=== PATIENT | female | born 1970 | race Caucasian/White ===

== ENCOUNTER 2021-04-25 10:05 | Outpatient (REF) | payer OTHER, SELFPAY ==
[2021-04-25 10:38] LABS: MANUAL DIFF FLAG NO
[2021-04-25 10:49] LABS: Basophils Percent Auto 0.7 % (0-2); Eosinophils Absolute Auto 0.2 X10*3/uL (0.0-0.4); Eosinophils Percent Auto 2.9 % (0-4); Hematocrit 41.8 % (37.0-47.0); Hemoglobin 13.3 g/dl (12.0-16.0); Imm Gran Abs Auto 0.03 X10*3/uL (0.00-0.03); Imm Gran Pct Auto 0.5 % (0.0-0.4); Lymphocytes Absolute Auto 2.3 X10*3/uL (1.2-4.9); Lymphocytes Percent Auto 39.1 % (20-40); Mean Corpuscular HGB Conc 31.8 g/dl (31.0-35.0); Mean Corpuscular Hemoglobin 28.7 pg (27.0-33.0); Mean Corpuscular Volume 90.3 fL (80.0-98.0); Mean Platelet Volume 12.1 fL (9.4-12.3); Monocytes Absolute Auto 0.5 X10*3/uL (0.1-1.2); Monocytes Percent Auto 8.3 % (2-11); Neutrophils Absolute Auto 2.8 x10*3/uL (2.0-8.3); Neutrophils Percent Auto 48.5 % (45-73); Platelet Count 195 X10*3/uL (160-400); Red Blood Count 4.63 X10*6/uL (4.20-5.50); Red Cell Distribution Width 13.9 % (11.0-16.0); White Blood Count 5.8 X10*3/uL (4.8-10.8)
[2021-04-25 11:21] LABS: Alanine Aminotransferase 14 U/L (0-31); Albumin Level 4.1 g/dL (3.5-5.0); Alkaline Phosphatase 70 U/L (39-117); Anion Gap 14 (12-20); Aspartate Amino Transferase 18 U/L (5-31); Bilirubin Total 0.7 mg/dL (0.0-1.0); Blood Urea Nitrogen 18 mg/dL (9-16); C Reactive Protein 0.15 mg/dL (< or = 0.50); Calcium 9.9 mg/dL (8.4-10.2); Carbon Dioxide 25 mmol/L (22-29); Chloride 107 mmol/L (96-108); Estimated Glomerular Filt Rate > 60; Glucose Random 118 mg/dL (60-115); Iron 148 mcg/dL (30-160); Percent Iron Saturation 40 % (15-50); Potassium 4.5 mmol/L (3.3-5.1); Sodium 141 mmol/L (135-145); Total Iron Binding Capacity 369 mcg/dL (228-428); Total Protein 6.8 g/dL (6.5-8.0); Unsaturated Iron Binding 221 ug/dL
[2021-04-25 11:31] LABS: Erythrocyte Sedimentation Rate 4 MM/HR (0-20)
[2021-04-25 11:43] LABS: Thyroid Stimulating Hormone 1.17 uIU/mL (0.32-4.0)
[2021-04-25 11:44] LABS: Cholesterol 194 mg/dL; HDL Cholesterol 81 mg/dL; LDL Cholesterol Calculated 102 mg/dl; Lactate Dehydrogenase 140 U/L (122-220); Triglycerides 55 mg/dL
[2021-04-25 12:56] LABS: Ferritin 16 ng/mL (10-250)
[2021-04-27 08:05] LABS: ~HepC Num1 0.17 S/CO (0.00-0.79); ~Hepatitis C Antibody Nonreactive (Nonreactive)
[2021-04-27 08:11] LABS: HIV AB/AG Nonreactive (Nonreactive); HIV Num 1 0.05 S/CO (0.00-0.99)
== END 2021-04-25 10:06 | disposition home or self-care (01) ==
LOC: HO.LAB 10:05
PROVIDERS: Absent Provider Internal Medicine; PCP Internal Medicine; Visit Provider Internal Medicine Gastroenterology
DX: Z00.00 Encounter for general adult medical examination without abnormal findings (principal); Z11.4 Encounter for screening for human immunodeficiency virus [HIV]; K52.9 Noninfective gastroenteritis and colitis, unspecified; K75.81 Nonalcoholic steatohepatitis (NASH); R61 Generalized hyperhidrosis
CPT/HCPCS: 36415; 80053; 80061; 82728; 83540; 83615; 84443; 85025; 85652; 86140; 86803; 87389

== ENCOUNTER → 2021-04-28 14:58 | Outpatient (BNVA) | payer OTHER, SELFPAY | PROVIDERS: PCP Internal Medicine; Visit Provider Nurse Practitioner Family | DX: K52.9 Noninfective gastroenteritis and colitis, unspecified (principal) | CPT/HCPCS: 99212 ==

== ENCOUNTER → 2021-06-10 14:57 | Outpatient (BNVA) | payer OTHER, SELFPAY | PROVIDERS: PCP Internal Medicine; Visit Provider Nurse Practitioner Family | DX: Z13.89 Encounter for screening for other disorder (principal) ==

== ENCOUNTER 2021-12-15 10:03 | Outpatient (REF) | payer OTHER, SELFPAY ==
[2021-12-15 12:41] LABS: C Reactive Protein 0.16 mg/dL (< or = 0.50)
== END 2021-12-15 10:04 | disposition home or self-care (01) ==
LOC: HO.HMGCLDS 10:03
PROVIDERS: PCP Internal Medicine; Visit Provider Nurse Practitioner Family
DX: K52.9 Noninfective gastroenteritis and colitis, unspecified (principal)
CPT/HCPCS: 36415; 86140

== ENCOUNTER 2022-10-12 13:01 | Outpatient (AMB) | payer OTHER, SELFPAY ==
--- NOTE | 2022-10-12 13:09 | A.OFFVIS_ITS ---
Intake Vital Signs 10/12/22 13:10 Height 5 ft 6 in Weight 149 lb 14.629 oz BMI 24.2 BP 110/56 L Blood Pressure Location Lt brachial Position Sitting Pulse 71 Intake Visit Reasons: 1 year follow up Intake Note: Patient presents to in office one year follow up. Patient denies having any GI symptoms or concerns today. Allergies Seasonal Allergies Allergy (Mild, Verified 10/12/22 13:11) Unknown HPI 1 year follow up HPI Details LAST VISIT Colitis Patient is asymptomatic. We will taper slowly her mesalamine. Most likely patient had diverticulitis versus colitis. Her symptoms most likely improved due to her dietary changes. Diverticulosis Diverticulosis of right and left colon. High-fiber diet. Important about moving her bowels every day and feeling like she empties them completely. I will see patient in 1 year, sooner on as needed basis. Patient is agreeable to this plan and verbalizes understanding of instructions. She was given the opportunity to ask questions all questions answered. ? Thank you for allowing me to participate in her care Plan Medications Changed From mesalamine 1,000 mg VA BEDTIME 30 supp 2RF To mesalamine 1,000 mg VA BEDTIME 30 supp 1RF TODAY'S VISIT: Patient is here today for follow-up. Patient reports that she has been feeling well, denies any GI concerning symptoms. Denies any abdominal pain or discomfort. Occasional constipation, however patient feels like she is in perimenopause all state and feels like her symptoms are related to change in her hormone moves. Patient denies melena, hematochezia, unintentional weight loss or ribbon like stools. Patient denies dyspepsia, dysphagia or odynophagia. PFSH Medical History Hx of malignant melanoma Surgical History History of esophagogastroduodenoscopy (EGD) Hx of colonoscopy Hx of tonsillectomy Family History Mother Diabetes HTN (hypertension) Heart problem Father Diabetes HTN (hypertension) Prostate cancer Paternal Grandmother Diabetes Paternal Grandfather Prostate cancer Sister Multiple sclerosis Sister Asthma Social History Household Members: Spouse and Children Alcohol intake: current Alcohol intake frequency: a few times a week Alcohol type: wine Patient Tobacco Use Status: Never used Tobacco Substance Use Type: Marijuana Review of Systems Const Denies weight gain and Denies weight loss ENT Reports no additional complaints, Denies dysphagia and Denies odynophagia Card Reports no additional complaints Resp Reports no additional complaints GI Denies abdominal pain, Denies belching, Denies melena, Denies bloating, Denies change in bowel habits, Denies dysphagia, Denies excessive flatus, Denies dyspepsia, Denies heartburn, Denies diarrhea, Denies loose stools, Denies nausea, Denies odynophagia and Denies vomiting Musc Reports no additional complaints Neuro Reports no additional complaints Psych Reports no additional complaints Endo Reports no additional complaints Physical Exam Vital Signs: Last Vital Signs Pulse 71 10/12/22 13:10 BP 110/56 L 10/12/22 13:10 BMI result Body Mass Index 24.2 Const General: healthy appearing, no acute distress and well developed Nutritional Appearance: well nourished Orientation/consciousness: patient oriented x3 HEENT Head: Yes normal to inspection, Yes normocephalic and Yes atraumatic Face and sinus: Yes normal facial exam Mouth: Normal oral and palatal mucosa present Throat: Yes posterior oropharynx normal, Yes tonsils normal and Yes uvula midline Eyes General: appearance normal, both eyes and all related structures Neck Neck: Yes normal visual inspection, Yes full ROM and Yes trachea midline Thyroid: Thyroid normal Resp Effort & Inspection: normal respiratory effort, able to speak in complete sentences, no tracheal deviation and symmetric chest movement Auscultation: clear to auscultation bilaterally Cardio Rate: regular rate Heart sounds: S1 normal heart sound present and S2 normal heart sound present GI Inspection: Yes normal to inspection and No distended Palpation (GI): Soft to palpation, not firm, nontender and No hepatosplenomegaly present Auscultation: normal bowel sounds General: Yes no CVA tenderness Back/Spine/Pelvis Back: no CVA tenderness Skin General skin exam: elasticity normal, turgor normal and dry skin Neuro General: patient oriented x3 Psych Appearance: grossly normal Mental Status: mental status grossly normal Speech and movement: Normal speech and movement present Assessment & Plan Assessment & Plan (1) Diverticulosis: Code(s): K57.90 - Diverticulosis of intestine, part unspecified, without perforation or abscess without bleeding Plan: History of diverticulosis. Continue high-fiber diet. (2) History of colitis: Code(s): Z87.19 - Personal history of other diseases of the digestive system Plan: Patient denies any breakthrough episodes. Reports that mesalamine suppository helped her within couple days. Patient denies any abdominal pain or discomfort. Patient will be due to go for colonoscopy in 2024, however patient was instructed to call our office if she will continue to have abdominal pain and discomfort. I will see her in 1 year the bases. Patient is agreeable to this p june and verbalizes understanding of instructions. She was given the opportunity to ask questions were answered. Thank you for allowing me to participate in her care Coding Level of Care Code Est Pt Level 3 (78352) Diagnoses Diverticulosis K57.90 History of colitis Z87.19 Time Spent (min) 30 Comment 20 minutes spent with patient and additional 10 minutes spent reviewing her records
[2022-10-12 13:10] VITALS: BP 110/56; PULSE 71; BMI 24.2
== END 2022-10-12 13:37 | disposition home or self-care (01) ==
PROVIDERS: PCP Internal Medicine; Visit Provider Nurse Practitioner Family
DX: K57.90 Diverticulosis of intestine, part unspecified, without perforation or abscess without bleeding (principal); Z87.19 Personal history of other diseases of the digestive system
CPT/HCPCS: 99213

== ENCOUNTER → 2022-10-12 13:01 | Outpatient (BNVA) | payer OTHER, SELFPAY | PROVIDERS: PCP Internal Medicine; Visit Provider Nurse Practitioner Family ==

== ENCOUNTER 2023-12-06 16:05 | Outpatient (AMB) | payer OTHER, SELFPAY ==
[2023-12-06 16:11] VITALS: BP 120/66; PULSE 70; O2SAT 100; BMI 24.1
--- NOTE | 2023-12-06 16:11 | A.OFFVIS_ITS ---
Vital Signs 12/06/23 16:11 Height 5 ft 6 in Weight 149 lb 0.52 oz BMI 24.1 BP 120/66 Blood Pressure Location Rt brachial Position Sitting Pulse 70 Pulse Source Pulse Oximeter Pulse Oximetry (%) 100 Oxygen Delivery Method Room Air Intake Visit Reasons: 1 year follow up Intake Note: Relevant Flags or Indicators ? Requires Public Safety Telecommunicator? N Bridget presents in office today for a scheduled 1 year FUV. CC; No recent labs, diagnostics, or med orders placed. ? Relevant GI Sx as reported per pt? None ? Hx of any recent surgeries? None Public Safety Telecommunicator Required: No Allergies Seasonal Allergies Allergy (Mild, Verified 12/06/23 16:11) Unknown HPI HPI 1 year follow up: Details: LAST VISIT Diverticulosis History of diverticulosis. Continue high-fiber diet. History of colitis Patient denies any breakthrough episodes. Reports that mesalamine suppository helped her within couple days. Patient denies any abdominal pain or discomfort. Patient will be due to go for colonoscopy in 2024, however patient was in structed to call our office if she will continue to have abdominal pain and discomfort. I will see her in 1 year the bases. Patient is agreeable to this plan and verbalizes understanding of instructions. She was given the opportunity to ask questions were answered. TODAY'S VISIT Patient is here today for follow-up and to discuss going for colonoscopy. Patient reports that she has been doing fairly well has not had any issues with in the last year or so. Patient reports that she is moving her bowels well. She is eating well balance and high-fiber diet. Drinks plenty fluids. Denies melena, hematochezia, unintentional weight loss or ribbon like stools. Denies dyspepsia, dysphagia or odynophagia. Last colonoscopy in 2024 recommendation was made for 5 year colonoscopy recall. Patient denies any issues with anesthesia in the past. No history of sleep apnea. History of colitis in the past not on any medications at this moment per patient's choice. Patient denies any history of sleep apnea. Not on any anticoagulation medication. [facility] Medical History (Updated 12/15/23 @ 20:35 by Park Kay [facility]) Diverticulosis Colitis Hx of malignant melanoma Surgical History Hx of tonsillectomy Hx of colonoscopy History of esophagogastroduodenoscopy (EGD) Family History Mother Diabetes HTN (hypertension) Heart problem Father Diabetes HTN (hypertension) Prostate cancer Paternal Grandmother Diabetes Paternal Grandfather Prostate cancer Sister Multiple sclerosis Sister Asthma Social History Household Members: Spouse and Children Alcohol intake: current Alcohol intake frequency: a few times a week Alcohol type: wine Patient Tobacco Use Status: Never used Tobacco Substance Use Type: Marijuana Review of Systems Const Denies weight gain and Denies weight loss ENT Reports no additional complaints, Denies dysphagia and Denies odynophagia Card Reports no additional complaints Resp Reports no additional complaints GI Denies abdominal pain, Denies belching, Denies melena, Denies bloating, Denies change in bowel habits, Denies dysphagia, Denies excessive flatus, Denies dyspepsia, Denies heartburn, Denies diarrhea, Denies loose stools, Denies nausea, Denies odynophagia and Denies vomiting Musc Reports no additional complaints Neuro Reports no additional complaints Psych Reports no additional complaints Endo Reports no additional complaints Physical Exam Vital Signs: Last Vital Signs Pulse 70 12/06/23 16:11 BP 120/66 12/06/23 16:11 Pulse Ox 100 12/06/23 16:11 Oxygen Delivery Method Room Air 12/06/23 16:11 BMI result Body Mass Index 24.1 Const General: healthy appearing, no acute distress and well developed Nutritional Appearance: well nourished Orientation/consciousness: patient oriented x3 Resp Effort & Inspection: normal respiratory effort, able to speak in complete sentences, no tracheal deviation and symmetric chest movement Auscultation: clear to auscultation bilaterally Cardio Rate: regular rate Heart sounds: S1 normal heart sound present and S2 normal heart sound present GI Inspection: Yes normal to inspection and No distended Palpation (GI): Soft to palpation, not firm, nontender and No hepatosplenomegaly present Auscultation: normal bowel sounds General: Yes no CVA tenderness Back/Spine/Pelvis Back: no CVA tenderness Skin General skin exam: elasticity normal, turgor normal and dry skin Neuro General: patient oriented x3 Psych Appearance: grossly normal Mental Status: mental status grossly normal Assessment & Plan Assessment & Plan (1) Diverticulosis: Code(s): K57.90 - Diverticulosis of intestine, part unspecified, without perforation or abscess without bleeding Category: Medical (2) History of colitis: Code(s): Z87.19 - Personal history of other diseases of the digestive system Category: Medical Plan What to expect before, during and after procedure discussed with patient. Stressed the importance of clear liquid diet and good bowel prep day before procedure. Patient denies any issues with anesthesia in the past. No history of sleep apnea. Not on any anticoagulation medication. Denies any cardiac or respiratory symptoms. Patient will be doing split MiraLax prep and Dulcolax day before procedure. Message sent to surgical schedulers to book procedure. Patient will follow-up in our office after the procedure, sooner on an as-needed basis. She is agreeable to this plan and verbalizes understanding of instructions. She was given the opportunity to ask questions and all questions answered. Thank you for allowing me to participate in her care Medications: New bisacodyl (Dulcolax (bisacodyl)) take 4 tabs at noon the day before your colonoscopy 20 mg (4 x 5 mg) PO ONCE 4 tabs 0RF 1 day Z12.11 - Encounter for screening for malignant neoplasm of colon polyethylene glycol 3350 (Miralax) As directed by gastroenterology department at [facility] 238 grams PO ONCE 238 grams 0RF Z12.11 - Encounter for screening for malignant neoplasm of colon Coding Level of Care Code Est Pt Level 3 (47068) Diagnoses Diverticulosis K57.90 History of colitis Z87.19 Time Spent (min) 25 Comment 15 minutes spent with patient and additional 10 minutes spent reviewing her records
== END 2023-12-06 17:00 | disposition home or self-care (01) ==
LOC: HO.HGI 16:05
PROVIDERS: PCP Internal Medicine; Visit Provider Nurse Practitioner Family
DX: K57.90 Diverticulosis of intestine, part unspecified, without perforation or abscess without bleeding (principal); Z87.19 Personal history of other diseases of the digestive system
CPT/HCPCS: 99213

== ENCOUNTER → 2023-12-06 16:05 | Outpatient (BNVA) | payer OTHER, SELFPAY | PROVIDERS: PCP Internal Medicine; Visit Provider Nurse Practitioner Family ==

== ENCOUNTER 2024-11-26 07:25 | Day surgery (SDC) | payer OTHER, SELFPAY ==
--- OUTSIDE RECORDS SUMMARY | 2024-09-07 11:54 | XMS_ITS | Encounter Summary ---
Author Organization [facility] Address [address] [place] [address] Phone Care Team Providers Care Carburetor Rebuilder Name Role Phone Joann Sheppard MD Unavailable [phone] Kaitlin Henderson MD Primary Care Provider [phone] Encounter Details Date Type Department Care Team (Late st Contact Info) Description 04/20/2024 Telephone [facility] [address] [place] [address] Kaitlin Henderson MD [address] [facility] [address] [place] [address] [email or web address] Social History Tobacco Use Types Packs/Day Years Used Date Smoking Tobacco: Former Cigarettes 0.5 10 1 990 - 2000 Smokeless Tobacco: Never Alcohol Use Standard Drinks/Week Comments Yes 3 (1 standard drink = 0.6 oz pur e alcohol) Child or Family Care Answer Date Record ed Do you have problems with on e of the following making it difficult for you to work, study, or receive health care? No 05/12/2023 Education Answer Date Recorded Are you interested in help w ith more adult education (for example, completing high school, GED, job training, learning the [place] language, technical skills, or developing parenting skills)? No 05/12/2023 Are you concerned about learning? Not on file 05/12/2023 No 05/12/2023 Yes 05/12/2023 Food Answer Date Recorded Within the past 6 months we worried whether our food would run out before we got money to buy more. Never True 05/12/2023 Within the past 6 months the food we bought just didn't last and we didn't have enough money to get more. Never True Residential Stability Answer Date Recor ded What is your housing situation today? I have rajendra webster 05/12/2023 How many times have you move d in the past 12 months? Zero (I did not move) 05/12/2023 Paying for Meds Answer Date Recorded Do you have trouble paying for medicines? No 05/12/2023 Paying Utility Bills Answer Date Record ed Do you have trouble paying your heating or elect ricity bill? No 05/12/2023 Transportation Answer Date Recorded Has the lack of transportati on kept you from medical appointments or from getting medications? No 05/12/2023 Unemployment Answer Date Recorded Are you currently unemployed or working on a part-time or temporary basis, and looking for work? No 04/27/2022 Digital Access Answer Date Recorded No 05/12/2023 Yes 05/12/2023 Do you have reliable internet access at home? Ye s 05/12/2023 Do you have a device (e.g., phone, tablet, computer) with a working camera? Yes 05/12/2023 Intimate Partner Violence Answer Date R ecorded Denied Basic Needs Not on file 05/12/2023 In the past 12 months have y ou been in a relationship with a person who hurts, threatens, or tries to control you? No 05/12/2023 Worried food would run out Not on file 05/11 In the past 12 months have y ou been in a relationship with a person who hurts, threatens, or tries to control you? 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 file Not on file Not on file documented as of this encounter Plan of Treatment Upcoming Encounters Date Type Department Care Team (Late st Contact Info) Description 10/10/2024 11:30 AM EDT Appointment [address] [place] [address] Khushi Alexandre MD [address] [place] [id number] 10/24/2024 10:20 AM EDT Office Visit [facility] [address] [place] [address] [place] [address] Khushi Alexandre MD [address] [place] [phone] documented as of this encounter Visit Diagnoses Not on filedocumented in this encounter Additional Health Concerns Assessment Noted Time PHQ-2 Depression Total Score: 0 05/12/19 24 2:25 PM EDT documented as of this encounter Care Teams Carburetor Rebuilder Relationship Specialty Start Date End Date Kaitlin Henderson MD [address] [place] [address], [address] [place] [address] PCP - General Family Medicine 10/31/23 Joann Sheppard MD [address] [place] [address] [address] [place] [address] Historical LMR Provider 11/28/16 documented as of this encounter Additional Source Comments The information contained in this document represents components of the legal health record. It is not the complete legal health record.[facility]
[2024-11-22 09:07] VITALS: BMI 24.0
--- NOTE | 2024-11-23 09:06 | HO.ANESPROP2 ---
Documented by User: Shilpi Perez NP 11/23/24 09:06 HPI - Anesthesia Eval Consult details Narrative: 54yo F for Colonoscopy [facility] Active Problems Active Problems: All Active Problems History of colitis (Acute) Diverticulosis (Acute) Past Medical History Medical History (Updated 11/22/24 @ 09:09 by Yennifer Simms, RN) Seasonal allergies Diverticulosis Colitis Hx of malignant melanoma Family History Family History Mother Diabetes HTN (hypertension) Heart problem Father Diabetes HTN (hypertension) Prostate cancer Paternal Grandmother Diabetes Paternal Grandfather Prostate cancer Sister Multiple sclerosis Sister Asthma Surgical History Surgical History Hx of tonsillectomy Hx of colonoscopy History of esophagogastroduodenoscopy (EGD) Social History Social History Household Members: Spouse and Children Alcohol intake: current Alcohol intake frequency: a few times a week Alcohol type: wine Patient Tobacco Use Status: Never used Tobacco Substance Use Type: Marijuana Meds Allergies Allergy/AdvReac Type Severity Reaction Status Date / Time Seasonal Allergies Allergy Mild Unknown Verified 12/06/23 16:11 Home Medications ?Medication ?Instructions ?Recorded ?Confirmed ?Last Taken ?Type cetirizine 10 mg capsule (Zyrtec) 10 mg PO DAILY PRN Allergy Symptoms 10/12/22 11/22/24 Unknown History Exam Height,Weight and Vital Signs: Height 5 ft 6 in Weight 67.585 kg Assessment and Plan Assessment Anesthesia Assessment: Chart Reviewed Documented by User: Ronnie Saenz MD 11/26/24 07:33 [facility] Past Medical History Medical History (Updated 11/22/24 @ 09:09 by Yennifer Simms RN) Seasonal allergies Diverticulosis Colitis Hx of malignant melanoma Patient : No Family History Family History Mother Diabetes HTN (hypertension) Heart problem Father Diabetes HTN (hypertension) Prostate cancer Paternal Grandmother Diabetes Paternal Grandfather Prostate cancer Sister Multiple sclerosis Sister Asthma Family history of problems with anesthesia: No Surgical History Surgical History Hx of tonsillectomy Hx of colonoscopy History of esophagogastroduodenoscopy (EGD) History of Problems with Anesthesia: No Social History Social History Household Members: Spouse and Children Alcohol intake: current Alcohol intake frequency: a few times a week Alcohol type: wine Patient Tobacco Use Status: Never used Tobacco Substance Use Type: Marijuana Meds Allergies Allergy/AdvReac Type Severity Reaction Status Date / Time Seasonal Allergies Allergy Mild Unknown Verified 12/06/23 16:11 Home Medications ?Medication ?Instructions ?Recorded ?Confirmed ?Last Taken ?Type cetirizine 10 mg capsule (Zyrtec) 10 mg PO DAILY PRN Allergy Symptoms 10/12/22 11/22/24 Unknown History Exam Airway Mallampati Class: II TM Dist: >3cm Neck ROM: Full Loose/Missing/Broken Teeth: No Heart: RRR Lungs: CTA Assessment and Plan Final Anesthetic Review Family History of Problems with Anesthesia: No History of Problems with Anesthesia: No ASA Class: II Final Preanesthetic Review: No Changes in Pt Med Stat Patient Risk: Low Procedure Risk: Low Anesthetic Plan Anesthetic Plan: MAC: Disposition: Standard PACU
--- NOTE | 2024-11-26 07:09 | MHC.SHP ---
Pre-Procedural Eval Section A - 24 Hr Update-Section A only Date of Service: 11/26/24 The patient is an INPATIENT: No The patient has been examined within 24 hours of the surgical procedure. The History & Physical has been completed within 30 days and I have reviewed it.: No Section B - Complete if H&P > 30 days Chief Complaint: Colon cancer screening Relevant Family History (Specify if Yes): No Relevant Social History: None Present Medications: see Short Stay Collaborative assessment Medical History: Significant History (Diverticulosis Colitis Hx of malignant melanoma) History of Previous Operations: Relevant previous surgery/procedure and date(s) (Hx of tonsillectomy Hx of colonoscopy History of esophagogastroduodenoscopy (EGD)) Allergies: Allergies Allergy/AdvReac Type Severity Reaction Status Date / Time Seasonal Allergies Allergy Mild Unknown Verified 12/06/23 16:11 Review of Systems Sugical H&P ROS: Negative: Constitution, Cardiovascular, Respiratory and Gastrointestinal Exam Surgical H&P Exam: Normal: Heart, Normal: Lungs, Normal: Extremities and Normal: Abdomen Plan Diagnosis/Plan: Unchanged I have reviewed the history and physical and performed a pertinent physical examination on my patient. No changes have occurred unless specified. Time Spent With Patient Time: Total time managing care of this patient today ____ minutes.
[2024-11-26 07:31] VITALS: BMI 24.7
[2024-11-26] MEDS: Lactated Ringers 1,000 ML 100 ML IVCONT (07:46)
[2024-11-26 07:47] VITALS: BP 114/61; PULSE 76; RESP 16; TEMP 37.4; O2SAT 99
[2024-11-26 09:10] VITALS: BP 105/59; PULSE 80; RESP 22; TEMP 37.2; O2SAT 99
--- NOTE | 2024-11-26 09:10 | HO.OPN-COLON ---
Colonoscopy Operative Note Operative Note Date of Service: 11/26/24 Narrative: COLONOSCOPY TILL CECUM WITH BIOPSIES, SNARE POLYPECTOMY, SUBMUCOSAL INJECTION AND HEMOCLIP PLACEMENT Pre-op diagnosis: Colon cancer screening, family history of colon cancer (Mom in her 70's) and polyps (Dad). Post-op diagnosis:? colon polyp, Diverticulosis Endoscopist:? Ana Cristina Hernandez MD Anesthesia:?MAC Consent: Indications for the procedure and potential complications of bleeding, perforation, reaction to medications and missed diagnosis were discussed with the patient and informed consent was obtained. Instrument: Olympus PCF H 190 L variable stiffness pediatric colonoscope Monitoring: Vital signs and clinical assessment, intermittent blood pressure monitoring, continuous EKG monitoring, Pulse oximetry and Carbon Dioxide monitoring were done throughout the procedure. Please see anesthesia flowsheet. Colon withdrawl time was 20 minutes. Procedure: The patient was placed in the left lateral decubitis position and pre-procedure medications were administered. After a digital rectal examination of the ano-rectum, the video colonoscope was inserted into the rectum and advanced through the colon to the cecum. The colonoscope was slowly withdrawn in a retrograde panoramic fashion and the colon mucosa was carefully examined including a retroflexed view of the rectum. Findings and interventions are described below. Procedure Difficulty: without difficulty Findings: Terminal Ileum: Not evaluated Cecum: A 15 mm flat polyp - raised with 3 cc of [place] and removed with a stiff hot snare. Polypectomy site was closed with 1 hemoclip. Ascending Colon: Normal Transverse Colon: Normal Descending Colon: Moderate diverticulosis Sigmoid Colon: Moderate diverticulosis Rectum: Normal Ano-rectum: Normal Colon preparation: Excellent after some irrigation. [place] Bowel Preparation Scale Right colon; 3 Transverse colon: 3 Left colon; 3 (0 = Unprepared colon segment with mucosa not seen due to solid stool that cannot be cleared. 1 = Portion of mucosa of the colon segment seen, but other areas of the colon segment not well seen due to staining, residual stool and/or opaque liquid. 2 = Minor amount of residual staining, small fragments of stool and/or opaque liquid, but mucosa of colon segment seen well. 3 = Entire mucosa of colon segment seen well with no residual staining, small fragments of stool or opaque liquid) Impression and Post Procedure Diagnosis: Colonoscopy Findings: One medium sized polyp was removed Random biopsies were obtained from the right colon, left colon and rectum Moderate diverticulosis seen in the left colon Plan: I will send a letter with biopsy results Repeat Colonoscopy in 3 years if polyp is adenomatous and 10 year if polyps are hyperplastic. Above findings were reviewed with the patient and relevant handouts were given and the discharge area. BIOPSIES SHOWED: A. Cecum, polypectomy: Fragments of sessile serrated lesion/polyp; negative for cytologic dysplasia; multiple additional levels examined. B. Colon, right, biopsy: Colonic mucosa within normal limits. C. Colon, left, biopsy: Colonic mucosa within normal limits. D. Rectum, biopsy: Rectal mucosa within normal limits Letter sent with biopsy results. Patient was placed on the colonoscopy recall list for repeat colonoscopy in 3 years.
[2024-11-26 09:25] VITALS: BP 109/65; PULSE 73; RESP 16; TEMP 37.2; O2SAT 98
== END 2024-11-26 09:42 | disposition home or self-care (01) ==
PROVIDERS: PCP Student in an Organized Health Care Education/Training Program; Visit Provider Internal Medicine Gastroenterology
PROC: 0DJD8ZZ Inspection of Lower Intestinal Tract, Via Natural or Artificial Opening Endoscopic (ICD-10-PCS; CPT 45378; principal; 2024-11-26 08:30)
DX: Z12.11 Encounter for screening for malignant neoplasm of colon (principal); Z87.19 Personal history of other diseases of the digestive system; K57.90 Diverticulosis of intestine, part unspecified, without perforation or abscess without bleeding; Z80.0 Family history of malignant neoplasm of digestive organs; Z83.719 Family history of colon polyps, unspecified; D12.0 Benign neoplasm of cecum
CPT/HCPCS: 45380; 45385; 45381; 88305; J2003; J2704

== ENCOUNTER → 2024-11-26 07:25 | Outpatient (BNV) | payer OTHER, SELFPAY | PROVIDERS: PCP Student in an Organized Health Care Education/Training Program; Visit Provider Internal Medicine Gastroenterology | DX: Z12.11 Encounter for screening for malignant neoplasm of colon (principal); Z80.0 Family history of malignant neoplasm of digestive organs; K63.5 Polyp of colon; K57.90 Diverticulosis of intestine, part unspecified, without perforation or abscess without bleeding | CPT/HCPCS: 45381; 45385 ==